=== PATIENT | female | born 1975 | race Caucasian/White ===

== ENCOUNTER 2022-10-13 09:32 | Outpatient (CLI) | payer OTHER, SELFPAY ==
[2022-10-13 13:55] LABS: Albumin* 4.6 g/dL (3.3-5.0); Chloride* 106 mmol/L (96-114); Potassium* 4.6 mmol/L (3.6-5.1); Sodium* 141 mmol/L (135-149)
[2022-10-13 13:57] LABS: Cholesterol* 178 mg/dL (90-199)
[2022-10-13 13:58] LABS: Alanine Aminotransferase* 30 U/L (4-35); Alkaline Phosphatase* 106 U/L (40-150); Aspartate Amino Transferase* 27 U/L (12-35); Blood Urea Nitrogen* 13 mg/dL (5-24); Calcium* 9.4 mg/dL (8.4-10.6); Carbon Dioxide* 27 mmol/L (20-32); Creatinine* 0.7 mg/dL (0.5-1.5); Estimated Glomerular Filt Rate 107 ml/min; Glucose* 86 mg/dL (60-115); HDL Cholesterol* 88 mg/dL (>=50); LDL Cholesterol Calculated 61 mg/dL (<100); Total Protein* 7.4 g/dL (6.0-8.3); Triglycerides* 144 mg/dL (40-149)
[2022-10-13 14:15] LABS: Vitamin D 25 Hydroxy* 18 ng/mL (30-80)
[2022-10-13 14:51] LABS: Vitamin B12* 530 pg/mL (243-894)
== END 2022-10-13 09:33 | disposition home or self-care (01) ==
PROVIDERS: PCP Family Medicine; Visit Provider Family Medicine
DX: R53.83 Other fatigue (principal); E53.8 Deficiency of other specified B group vitamins; E55.9 Vitamin D deficiency, unspecified; Z98.84 Bariatric surgery status; Z13.6 Encounter for screening for cardiovascular disorders
CPT/HCPCS: 80053; 80061; 82306; 82607; 82728; 84443

== ENCOUNTER 2023-02-03 09:17 | Outpatient (CLI) | payer OTHER, SELFPAY ==
--- NOTE | 2023-02-03 09:54 | W.ANESCHARGE ---
Anesthesia Charges Start Date/Time Anesthesia Start Date: 02/03/23 Anesthesia Start Time: 09:52 Stop Date/Time Anesthesia Stop Date: 02/03/23 Anesthesia Stop Time: 10:27
--- NOTE | 2023-02-03 10:29 | W.ANESCHARGE ---
Anesthesia Charges Start Date/Time Anesthesia Start Date: 02/03/23 Anesthesia Start Time: 09:52 Stop Date/Time Anesthesia Stop Date: 02/03/23 Anesthesia Stop Time: 10:27
== END 2023-02-03 09:18 | disposition home or self-care (01) ==
PROVIDERS: PCP Family Medicine; Visit Provider Surgery
DX: Z12.11 Encounter for screening for malignant neoplasm of colon (principal); K64.8 Other hemorrhoids; K64.4 Residual hemorrhoidal skin tags
CPT/HCPCS: 45378; 811; 812; J2704

== ENCOUNTER 2023-11-10 12:40 | Outpatient (CLI) | payer BC, SELFPAY | END 2023-11-10 12:41 | disposition home or self-care (01) | PROVIDERS: PCP Family Medicine; Visit Provider Family Medicine | DX: E55.9 Vitamin D deficiency, unspecified (principal); E53.8 Deficiency of other specified B group vitamins; R53.83 Other fatigue; Z13.6 Encounter for screening for cardiovascular disorders; Z13.9 Encounter for screening, unspecified | CPT/HCPCS: 80048; 80061; 82306; 85025 ==

== ENCOUNTER 2025-02-20 17:29 | Outpatient (CLI) | payer BC, SELFPAY | END 2025-02-20 17:30 | disposition home or self-care (01) | PROVIDERS: PCP Family Medicine; Visit Provider Family Medicine | DX: E53.8 Deficiency of other specified B group vitamins (principal); E55.9 Vitamin D deficiency, unspecified; Z79.84 Long term (current) use of oral hypoglycemic drugs; Z13.29 Encounter for screening for other suspected endocrine disorder; Z13.0 Encounter for screening for diseases of the blood and blood-forming organs and certain disorders involving the immune mechanism | CPT/HCPCS: 80053; 82306; 82607; 84439; 84443; 85025 ==

== ENCOUNTER 2025-08-08 13:14 | Outpatient (CLI) | payer BC, SELFPAY | END 2025-08-08 13:15 | disposition home or self-care (01) | LOC: FBOREF 13:16 | PROVIDERS: PCP Family Medicine; Visit Provider Family Medicine | DX: E03.9 Hypothyroidism, unspecified (principal) | CPT/HCPCS: 84443 ==